=== PATIENT | female | born 1975 | race Caucasian/White ===

== ENCOUNTER 2024-11-21 11:05 | Emergency (ER) | payer MEDICAID, SELFPAY ==
[2024-11-21 11:08] VITALS: BP 141/107; PULSE 94; TEMP 36.6; O2SAT 95; BMI 53.5
--- NOTE | 2024-11-21 11:39 | CT_ITS ---
The [address] [address] Patient Name: LORNA RAGLAND MRN: [id number] date: 1975 Sex: F Assigned Patient Location: ER Current Patient Location: ER Accession/Order Number: [id number] Exam Date: 11/21/2024 12:20 Report Date: 11/21/2024 12:57 At the request of: SAGE ORTIZ Procedure: CT abdomen pelvis wo con EXAM: CT abdomen pelvis wo con HISTORY: epigastric pain sbo ? COMPARISON: CT abdomen pelvis 06/13/2013. CT chest including the upper abdomen 06/18/2014. TECHNIQUE: CT abdomen pelvis without contrast. Axial scans with reformatted coronal sagittal images. Individualized radiation dose reduction used for this exam FINDINGS: Lower chest: Lung bases clear, no acute process. ABDOMEN: No focal liver lesion. Fluid-filled gallbladder prominent without calcified stone or surrounding inflammation. No duct dilatation. Adrenal glands, pancreas, spleen unremarkable. No ascites or abdominal fluid. No adenopathy. Normal size aorta with minor plaque. Graft normal kidneys without renal or ureteral calculus or hydronephrosis. Previous gastric surgery. No gastric, small bowel or colonic distention or obstruction. Moderate stool within the colon. Normal diameter appendix right lower quadrant. Pelvis: Plan mass or adenopathy or free fluid uterus and adnexa unremarkable. MUSCULOSKELETAL: No suspicious bone lesion. Mild compression deformity T12 is chronic and unchanged. No new bony abnormality. Small fat-containing periumbilical hernia. CT/CT abdomen pelvis wo con IMPRESSION: No acute abnormality lower chest, abdomen pelvis. Previous gastric surgery. No bowel distention or obstruction. gallbladder is prominent fluid-filled without calcified stone. Electronically authenticated by: MANUEL HURTADO Date: 11/21/2024 12:57
[2024-11-21 12:03] LABS: Basophils Absolute Auto 0.1 10^3/uL (0.0-0.1); Basophils Percent Auto 0.5 % (0.2-2.0); Eosinophils Absolute Auto 0.1 10^3/uL (0.0-0.7); Eosinophils Percent Auto 1.3 % (0.9-7.0); Hematocrit 46.8 % (36.0-48.0); Hemoglobin 15.4 g/dL (12.0-16.0); Immature Granulocytes Abs Auto 0.03 10^3/uL (0.00-0.03); Immature Granulocytes Pct Auto 0.3 % (0.0-0.5); Lymphocytes Absolute Auto 1.3 10^3/uL (1.2-3.8); Lymphocytes Percent Auto 12.1 % (20.5-60.0); Mean Corpuscular HGB Conc 32.9 g/dL (29.9-35.2); Mean Corpuscular Hemoglobin 30.8 pg (26.7-34.0); Mean Corpuscular Volume 93.6 fL (81.0-99.0); Mean Platelet Volume 9.7 fL (9.5-13.5); Monocytes Absolute Auto 0.6 10^3/uL (0.3-0.8); Monocytes Percent Auto 5.5 % (1.7-12.0); Neutrophils Absolute Auto 8.9 10^3/uL (1.4-6.5); Neutrophils Percent Auto 80.3 % (43.0-75.0); Platelet Count 273 10^3/uL (150-450); Red Cell Distribution Width 12.8 % (11.0-15.0); White Blood Count 11.1 10^3/uL (4.0-11.0)
[2024-11-21] MEDS: FAMOTIDINE/PF 20 MG/2 ML VIAL IV (12:06)
[2024-11-21] MEDS: KETOROLAC TROMETHAMINE 30 MG/ML VIAL IVP (12:06)
[2024-11-21] MEDS: 0.9 % SODIUM CHLORIDE 1,000 ML 1000 ML IV (12:06)
[2024-11-21] MEDS: ONDANSETRON 4 MG RAPDIS TABLET SL (12:06)
[2024-11-21 12:15] LABS: HCG Qualitative NEGATIVE (NEGATIVE); Internal Control Within Normal Limits
[2024-11-21 12:20] LABS: INR 1.03; Prothrombin Time 10.9 sec (9.0-11.6)
[2024-11-21 12:22] LABS: Alanine Aminotransferase 18 U/L (14-59); Albumin Globulin Ratio 0.8; Albumin Level 3.5 g/dL (3.4-5.0); Alkaline Phosphatase 122 U/L (46-116); Anion Gap 15.3; Aspartate Amino Transferase 20 U/L (15-37); BUN Creatinine Ratio 17.4; Bilirubin Total 0.6 mg/dL (0.2-1.0); Calcium 9.1 mg/dL (8.5-10.1); Carbon Dioxide 25.9 mmol/L (21.0-32.0); Chloride 104 mmol/L (98-107); Estimated GFR (African America >60 (>=60 mL/min/1.73m^2); Estimated GFR (Non-African Ame >60 (>=60 mL/min/1.73m^2); Globulin 4.2 g/dL; Glucose 154 mg/dL (74-106); Potassium 4.2 mmol/L (3.5-5.1); Sodium 141 mmol/L (136-145); Total Protein 7.7 g/dL (6.4-8.2)
--- NOTE | 2024-11-21 13:05 | ED_ITS ---
HPI - Abdominal Pain General Chief Complaint: Abdominal Pain Stated Complaint: vomiting Time Seen by Provider: 11/21/24 11:23 Source: patient Mode of arrival: Wheelchair History of Present Illness HPI narrative: Patient is coming to the ER with the almost 45 minutes history of vomiting 4 times, the patient have no other complaints other than that and diarrhea that started 3 AM, the patient denies any other concern she have a history of gastric sleeve in April of this year ,she denies any blood in her vomiting She did mention that she has some bouts of diarrhea as well as with the vomiting Related Data Previous Rx's ?Medication ?Instructions ?Recorded ondansetron 4 mg disintegrating 4 mg PO Q8H PRN nausea and 11/21/24 tablet vomiting 3 days #9 tabs Allergies Allergy/AdvReac Type Severity Reaction Status Date / Time ondansetron (From Zofran) Allergy Severe Anxiety Verified 11/21/24 11:15 Penicillins Allergy Severe Unknown Verified 11/21/24 11:14 promethazine (From Phenergan) Allergy Severe Anxiety Verified 11/21/24 11:15 Review of Systems ROS Status of ROS 10 or more systems reviewed and unremark able except as noted in history and below Exam Narrative Exam Narrative: Nurses notes and vital signs reviewed and patient is not hypoxic. General: Well-appearing and in no apparent distress. Skin: Warm, dry, no pallor noted. No rash. Head: Normocephalic, atraumatic. Neck: Supple, non-tender. Eye: Pupils are equal, round and EOMI. No scleral icterus. Ears, Nose, Mouth, and Throat: TM are clear, no nasal mucosal hypertrophy. Oral mucosa is moist, no posterior oropharynx erythema, uvula is mid-line Cardiovascular: Regular Rate and Rhythm without murmur, gallop or rub. Respiratory: No accessory muscle use or respiratory distress. Lungs are clear to auscultation, no wheezing, rales or rhonchi Chest Wall: no tenderness Back: No midline thoracic or lumbar vertebral tenderness. No CVA tenderness Musculoskeletal: normal ROM, no calf or popliteal tenderness, no lower extremity edema/swelling GI: Abdomen is soft, epigastric discomfort no right upper quadrant pain Neurological: A&O x4. No cranial nerve dysfunction observed. No truncal ataxia. Moves all extremities. Sensation intact. Psychiatric: Cooperative and interactive. Normal mood and affect. Constitutional Vital Signs, click to edit/add: Last Vital Signs Temp 97.9 F 11/21/24 11:08 Pulse 94 H 11/21/24 11:08 Resp 18 11/21/24 11:08 BP 141/107 H 11/21/24 11:08 Pulse Ox 95 11/21/24 11:08 O2 Del Method Room Air 11/21/24 11:08 Course Vital Signs Vital signs: Vital Signs Temperature 97.9 F 11/21/24 11:08 Pulse Rate 94 H 11/21/24 11:08 Respiratory Rate 18 11/21/24 11:08 Blood Pressure 141/107 H 11/21/24 11:08 Pulse Oximetry 95 11/21/24 11:08 Oxygen Delivery Method Room Air 11/21/24 11:08 Temperature 97.9 F 11/21/24 11:08 Pulse Rate 94 H 11/21/24 11:08 Respiratory Rate 18 11/21/24 11:08 Blood Pressure 141/107 H 11/21/24 11:08 Pulse Oximetry 95 11/21/24 11:08 Oxygen Delivery Method Room Air 11/21/24 11:08 MDM - Abdominal Pain MDM Narrative Medical decision making narrative: The patient CBC and chemistry showed no acute pathology Provided with Zofran that she mentioned that sublingual Zofran she can tolerated without any reaction The patient was feeling much better after the fluid hydration and the Zofran CAT scan of the abdomen pelvis showed no acute pathology and the patient was discharged after she was feeling better with supportive care The patient is to follow up with primary care physician in next 2-3 days or to return to the emergency department should any of the signs or symptoms worsen or new symptoms develop. The patient agrees with the following Diagnosis and Treatment plan and the patient will be discharged home. Lab Data Labs: Lab Results 11/21/24 Range/Units 11:55 WBC 11.1 H (4.0-11.0) 10^3/uL RBC 5.00 (4.20-5.40) 10^6/uL Hgb 15.4 (12.0-16.0) g/dL Hct 46.8 (36.0-48.0) % MCV 93.6 (81.0-99.0) fL MCH 30.8 (26.7-34.0) pg MCHC 32.9 (29.9-35.2) g/dL RDW 12.8 (11.0-15.0) % Plt Count 273 (150-450) 10^3/uL MPV 9.7 (9.5-13.5) fL Neut % (Auto) 80.3 H (43.0-75.0) % Lymph % (Auto) 12.1 L (20.5-60.0) % [facility] % (Auto) 5.5 (1.7-12.0) % Eos % (Auto) 1.3 (0.9-7.0) % Baso % (Auto) 0.5 (0.2-2.0) % Neut # (Auto) 8.9 H (1.4-6.5) 10^3/uL Lymph # (Auto) 1.3 (1.2-3.8) 10^3/uL [facility] # (Auto) 0.6 (0.3-0.8) 10^3/uL Eos # (Auto) 0.1 (0.0-0.7) 10^3/uL Baso # (Auto) 0.1 (0.0-0.1) 10^3/uL Abs Immat Gran (auto) 0.03 (0.00-0.03) 10^3/uL Imm/Tot Granulo (auto) 0.3 (0.0-0.5) % PT 10.9 (9.0-11.6) sec INR 1.03 Sodium 141 (136-145) mmol/L Potassium 4.2 (3.5-5.1) mmol/L Chloride 104 (98-107) mmol/L Carbon Dioxide 25.9 (21.0-32.0) mmol/L Anion Gap 15.3 BUN 12.0 (7.0-18.0) mg/dL Creatinine 0.69 (0.55-1.02) mg/dL Est GFR ( Amer) >60 (>=60 mL/min/1.73m^2) Est GFR (Non-Af Amer) >60 (>=60 mL/min/1.73m^2) BUN/Creatinine Ratio 17.4 Glucose 154 H (74-106) mg/dL Calcium 9.1 (8.5-10.1) mg/dL Total Bilirubin 0.6 (0.2-1.0) mg/dL AST 20 (15-37) U/L ALT 18 (14-59) U/L Alkaline Phosphatase 122 H (46-116) U/L Total Protein 7.7 (6.4-8.2) g/dL Albumin 3.5 (3.4-5.0) g/dL Globulin 4.2 g/dL Albumin/Globulin Ratio 0.8 Lipase 25.0 (16.0-77.0) U/L Serum HCG, Qual Negative (NEGATIVE) Discharge Plan Discharge Chief Complaint: Abdominal Pain Clinical Impression: Gastroenteritis Patient Disposition: Home, Self-Care Time of Disposition Decision: 13:06 Condition: Good Prescriptions / Home Meds: New ondansetron 4 mg tablet,disintegrating 4 mg PO Q8H PRN (Reason: nausea and vomiting) 3 Days Qty: 9 0RF Print Language: Uzbek Instructions: Gastroenteritis (DC), Acute Nausea and Vomiting (DC) Referrals: Physician,Non-Staff, MD [Primary Care Provider] - 1 week
[2024-11-21 13:18] VITALS: BP 130/89; PULSE 71; O2SAT 97
== END 2024-11-21 13:20 | disposition home or self-care (01) ==
PROVIDERS: Emergency Provider Emergency Medicine
DX: K52.9 Noninfective gastroenteritis and colitis, unspecified (principal); Z98.84 Bariatric surgery status
CPT/HCPCS: 36415; 74176; 80053; 83690; 84703; 85025; 85610; 96361; 96374; 96375; 99284; J1885; Q0162

== ENCOUNTER 2025-01-14 10:41 | Emergency (ER) | payer MEDICAID, SELFPAY ==
[2025-01-14 10:46] VITALS: BP 121/92; PULSE 104; TEMP 36.7; O2SAT 98; BMI 48.4
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
[2025-01-14] MEDS: METHYLPREDNISOLONE SOD SUCC PF 125 MG/2 ML VIAL IM (14:01)
== END 2025-01-14 14:18 | disposition home or self-care (01) ==
PROVIDERS: Emergency Provider Emergency Medicine; PCP Nurse Practitioner
DX: S13.4XXA Sprain of ligaments of cervical spine, initial encounter (principal); S23.3XXA Sprain of ligaments of thoracic spine, initial encounter; V49.88XA Car occupant (driver) (passenger) injured in other specified transport accidents, initial encounter; E66.01 Morbid (severe) obesity due to excess calories; E11.9 Type 2 diabetes mellitus without complications; Z68.42 Body mass index [BMI] 45.0-49.9, adult; Z98.84 Bariatric surgery status
CPT/HCPCS: 71101; 72040; 96372; 99284; J2919